=== PATIENT | female | born 1950 | race Caucasian/White ===

== ENCOUNTER → 2019-05-12 | Outpatient (CLI) | payer MEDICARE, OTHER ==
[2019-05-12 11:19] LABS: Creatine Kinase MB 0.4 ng/mL (0.0-2.4); Troponin I <0.012 ng/mL (0.000-0.034)
== END | disposition home or self-care (01) ==
LOC: LABWHC1 10:14
PROVIDERS: ATTEND Family Medicine
DX: G83.9 Paralytic syndrome, unspecified (principal); R06.02 Shortness of breath
CPT/HCPCS: 36415; 82553; 83615; 83880; 84484; 85379

== ENCOUNTER → 2019-05-16 | Outpatient (CLI) | payer MEDICARE, OTHER ==
--- NOTE | 2019-05-16 10:08 | CT ---
EXAMINATION TYPE: CT angio chest DATE OF EXAM: 05/16/2019 COMPARISON: None HISTORY: 68-year-old female Shortness of breath, chest pains TECHNIQUE: Contiguous axial scanning of the chest performed with IV Contrast, patient injected with 1 00, wasted 34 mL of Isovue 300. Coronal/sagittal MIP constructions performed. CT DLP: 584 mGycm Automated exposure control for dose reduction was used. FINDINGS: Heart normal size without pericardial effusion. No flattening of the interventricular septum or reflu x of contrast into the hepatic veins. Aorta normal caliber with conventional arch vessels are patent. Suboptimal opacification of the pulmonary arterial system. No large central or lobar pulmonary embolu s. No definite pulmonary embolus seen elsewhere within the lungs. Mildly enlarged 1 cm right hilar lymph node. Prominent 6 mm left hilar lymph node. No thoracic adenop athy by CT size criteria. Some strandy into lung atelectasis. Patchy groundglass and reticular change at the posterior right ba se. No other consolidation or pleural effusion. Nonspecific hypodense lesions within the liver measuring up to 1.6 cm suggestive of cysts. Cholecyste ctomy. Bones: No osseous destructive process. IMPRESSION: 1. Borderline suboptimal contrast bolus. No definite pulmonary embolus. 2. Mildly enlarged 1 cm right hilar lymph node, probably reactive/post inflammatory. Follow-up in 3-6 months to ensure stability/resolution. 3. Focal reticular and groundglass infiltrate in the posterior right base. Findings suggest an infect ious/inflammatory focus. Correlate for any symptoms of early pneumonia.
== END | disposition home or self-care (01) ==
LOC: RADCTMAIN 09:08
PROVIDERS: ATTEND Family Medicine
DX: R06.02 Shortness of breath (principal); R91.8 Other nonspecific abnormal finding of lung field
CPT/HCPCS: 71275; Q9967

== ENCOUNTER → 2021-02-14 | Outpatient (CLI) | payer MEDICARE, OTHER ==
--- NOTE | 2021-02-15 17:26 | CT ---
EXAMINATION TYPE: CT chest w con DATE OF EXAM: 02/14/2021 COMPARISON: CTA chest May 16, 2019 HISTORY: Mediastinal lymphadenopathy. Large B cell lymphoma CT DLP: 391.10 mGycm. Automated Exposure Control for Dose Reduction was Utilized. TECHNIQUE: CT scan of the thorax is performed following with IV Contrast, patient injected with 100 mL of Isovue 300. FINDINGS: LUNGS: Patchy groundglass opacities and reticular change in the posterior right lung base redemonstra ana paula slightly less prominent than prior. No new suspicious focal consolidation. No concerning nodules or masses. Scattered mild linear atelectatic change redemonstrated. There is no pleural effusion or pneumothorax seen. The tracheobronchial tree is patent. MEDIASTINUM: There are no new greater than 1 cm hilar or mediastinal lymph nodes. Slightly prominent right hilar lymph node axial image 28 slightly smaller in size versus prior study. No cardiomegaly or pericardial effusion is seen. OTHER: Cholecystectomy clips are redemonstrated. Stable slightly prominent but subcentimeter bilatera l axillary lymph nodes. Simple appearing 1.6 cm thin-walled cyst in the central hepatic dome redemons trated. Slight scoliotic curvature with nonspecific sclerotic focus involving the right T3 vertebra c oronal image 78 redemonstrated. IMPRESSION: Persistent but less prominent posterior right basilar groundglass opacity and reticulatio n with persistent but less prominent right hilar lymph node. Findings presumed residual chronic posti nflammatory change. No new suspicious acute pulmonary process. No new adenopathy noted.
== END ==
LOC: RADCTMAIN 17:38
PROVIDERS: ATTEND Family Medicine
DX: C85.28 Mediastinal (thymic) large B-cell lymphoma, lymph nodes of multiple sites (principal)
CPT/HCPCS: 82565; 84520; 71260; 36415; Q9967

== ENCOUNTER → 2021-10-17 | Outpatient (CLI) | payer MEDICARE, OTHER ==
--- NOTE | 2021-10-17 17:00 | CT ---
EXAMINATION TYPE: CT abdomen pelvis wo con DATE OF EXAM: 10/17/2021 COMPARISON: CT chest 02/14/2021 HISTORY: 70-year-old female N13.30, b/l hydronephrosis CT DLP: 965.6 mGycm. Automated exposure control for dose reduction was used. TECHNIQUE: Contiguous axial scanning of the abdomen and pelvis without IV contrast. Coronal and sagit joselito reconstructions performed. FINDINGS: Heart normal size without pericardial effusion. Some mild patchy groundglass periphery of the right b ase. No pleural effusion. This could represent a small infectious/inflammatory focus. Correlate with symptoms to exclude pneumonia. Posterior left hepatic dome cyst measuring 1.8 cm. Otherwise, noncontrast appearance of the liver, ad renal glands, spleen, and pancreas within normal limits. Cholecystectomy clips. No dilated small bowel, free fluid, or free air. No mesenteric or retroperitoneal lymphadenopathy. Normal appendix. Mild to moderate stool burden. No pericolonic inflammatory change. There is fullness of the bilateral renal collecting systems but no hydroureter or obstructing stone i dentified. These may represent bilateral extrarenal pelves or mild relative J obstruction. Correlate with patient's kidney function. No nephrolithiasis or contour deforming lesion seen. Bladder partially distended. Mild pelvic floor relaxation. Large centrally located partially calcifie d 3.3 cm fibroid within the uterus mid body to lower uterine segment. Small bilateral ovaries. No abn ormal fluid collection in the pelvis or pelvic lymphadenopathy. Bones: Degenerated levoconvex scoliosis of the lumbar spine. IMPRESSION: 1. There is fullness of the bilateral renal collecting systems but no hydroureter or obstructing sto ne seen. Findings may be on the basis of extrarenal pelves or mild relative UPJ obstructions. Correla te with patient's kidney function. Consider follow-up ultrasound or follow-up contrast enhanced CT s uch as in 3 months to reassess if kidney function remains normal. 2. Incidental: A large, centrally located partially calcified 3.3 cm uterine fibroid. 3. A patchy area of groundglass in the periphery of the right lung base could represent a small infe ctious/inflammatory focus. Correlate for any symptoms of pneumonia.
== END | disposition home or self-care (01) ==
LOC: RADCTMAIN 12:06
PROVIDERS: ATTEND Urology
DX: D25.9 Leiomyoma of uterus, unspecified (principal)
CPT/HCPCS: 74176